=== PATIENT | female | born 1940 ===

== ENCOUNTER → 2025-06-27 11:25 | Outpatient (CLI) | payer OTHER ==
[2025-06-27 12:46] LABS: CREATININE SERUM 0.93 mg/dL (0.55-1.02)
== END | disposition home or self-care (01) ==
LOC: LAB 11:25
PROVIDERS: ATTEND Radiology Diagnostic Radiology
DX: H90.41 Sensorineural hearing loss, unilateral, right ear, with unrestricted hearing on the contralateral side (principal)

== ENCOUNTER 2025-07-04 10:11 | Outpatient (CLI) | payer OTHER | END 2025-07-04 10:17 | disposition home or self-care (01) | LOC: MRI 10:11 | PROVIDERS: ATTEND Otolaryngology Otology & Neurotology | DX: H90.41 Sensorineural hearing loss, unilateral, right ear, with unrestricted hearing on the contralateral side (principal) | CPT/HCPCS: 70553; Q9965 ==